=== PATIENT | female | born 1995 ===

== ENCOUNTER → 2018-10-04 | Outpatient (CLI) | payer MEDICAID | END | disposition home or self-care (01) | LOC: U/S 09:22 | PROVIDERS: ATTEND Registered Nurse Obstetric, Inpatient | DX: O26.899 Other specified pregnancy related conditions, unspecified trimester (principal); Z3A.00 Weeks of gestation of pregnancy not specified; R10.2 Pelvic and perineal pain | CPT/HCPCS: 76801; 76817 ==